=== PATIENT | female | born 1985 | race American Indian/Alaskan Native ===

== ENCOUNTER 2017-12-18 20:15 | Inpatient (IN) | payer OTHER ==
[2017-12-18 20:25] VITALS: BMI 26.6
--- NOTE | 2017-12-18 21:20 | ED PDOC ---
Arrival/HPI - General Chief Complaint: Chest Pain Time Seen by Provider: 12/18/17 21:05 Historian: Patient - History of Present Illness Narrative History of Present Illness (Text): 12/18/17 21:18 32 year old female, whose past medical history includes, hyperthyroidism and history blood clots in the lungs (not on any blood thinners), presents to the emergency department complaining of shortness of breathe and chest pain that began 3-4AM (17 hours ago). The worsening pain radiates to the left arm and states it would not go away. Patient states she knows she has anxiety, but states this does not feel like her anxiety because she had blood clots in the past. Patient denies any fever, chills, abdominal pain, nausea, vomiting, diarrhea, urinary symptoms, back pain, neck pain, headache, dizziness, or any other complaints. Time/Duration: Other (17 hours ago) Symptom Onset: Gradual Symptom Course: Worsening Activities at Onset: Light Context: Home Past Medical History - Provider Review Nursing Documentation Reviewed: Yes - Infectious Disease Hx of Infectious Diseases: None - Pulmonary Hx Pulmonary Embolism: Yes - Hematological/Oncological Hx Cancer: Yes (ovarian) - Psychiatric Hx Substance Use: No - Surgical History Other/Comment: ovarian biopsy - Anesthesia Hx Anesthesia: Yes Hx Anesthesia Reactions: No Hx Malignant Hyperthermia: No Family/Social History - Physician Review Nursing Documentation Reviewed: Yes Family/Social History: No Known Family HX Smoking Status: Never Smoked Hx Alcohol Use: No Hx Substance Use: No Allergies/Home Meds Allergies/Adverse Reactions: Allergies No Known Allergies Allergy (Verified 12/18/17 20:25) Home Medications: Home Meds Medication Instructions Recorded Confirmed ALPRAZolam [Xanax] 0.25 mg PO DAILY PRN 12/19/17 12/19/17 Review of Systems - Physician Review All systems were reviewed & negative as marked: Yes - Review of Systems Constitutional: absent: Fevers, Other (Chills) Respiratory: SOB Cardiovascular: Chest Pain Gastrointestinal: absent: Diarrhea, Nausea, Vomiting Genitourinary Female: absent: Dysuria, Frequency, Hematuria Musculoskeletal: absent: Back Pain, Neck Pain Neurological: absent: Headache, Dizziness Physical Exam Vital Signs Reviewed: Yes Vital Signs Temp Pulse Pulse Resp BP Pulse Ox 12/19/17 06:00 99.2 F 102 H 18 142/60 96 12/19/17 05:37 98 H 04/17/18 04:56 103 H 103 H 18 12/19/17 03:43 133 H 132/72 12/19/17 03:04 115 H 18 131/71 98 12/19/17 00:31 118 H 18 141/78 100 12/18/17 20:31 98.4 F 125 H 26 H 138/83 100 Temperature: Afebrile Blood Pressure: Normal Pulse: Tachycardic Respiratory Rate: Normal Appearance: Positive for: Well-Appearing, Non-Toxic, Comfortable Pain Distress: None Mental Status: Positive for: Alert and Oriented X 3 - Systems Exam Head: Present: Atraumatic, Normocephalic Pupils: Present: PERRL Extroacular Muscles: Present: EOMI Conjunctiva: Present: Normal Mouth: Present: Moist Mucous Membranes Neck: Present: Normal Range of Motion Respiratory/Chest: Present: Clear to Auscultation, Good Air Exchange. No: Respiratory Distress, Accessory Muscle Use Cardiovascular: Present: Regular Rate and Rhythm, Normal S1, S2. No: Murmurs Abdomen: No: Tenderness, Distention, Peritoneal Signs Back: Present: Normal Inspection Upper Extremity: Present: Normal Inspection. No: Cyanosis, Edema Lower Extremity: Present: Normal Inspection. No: Edema Neurological: Present: GCS=15, CN II-XII Intact, Speech Normal Skin: Present: Warm, Dry, Normal Color. No: Rashes Psychiatric: Present: Alert, Oriented x 3, Normal Insight, Normal Concentration Medical Decision Making ED Course and Treatment: 12/18/17 21:28 Impression: 32 year old female presents complaining of worsening chest pain and shortness of breath that began 17 hours ago. Pain radiates down left arm. Pt past medical history includes history of blood clots in the lungs. Plan: -- Labs -- EKG -- Chest X-Ray -- Urinalysis, Urine test -- Reassess and disposition Progress Notes: 12/18/17 23:30 D-Dimer positive 381. Ordered CT chest ordered. 12/19/17 00:52 EKG: Ordered, reviewed, and independently interpreted the EKG. Rate : 135 BPM Rhythm : Sinus Tachycardia Interpretation : No ST/T changes LVH. Comparison : No previous EKG for comparison. EXAM: CT Angiography Chest With Intravenous Contras Dictated and Authenticated by: Ivelisse Rivera MD 12/19/2017 12:56 AM IMPRESSION: 1. Nonobstructing renal calculi. 2. Incidental/non-acute findings are described above. IMPRESSION: 1. Within the limitation of the study no definite central pulmonary embolus is identified and enlargement of pulmonary arterial trunk. Correlation with clinical data is recommended with pulmonary arterial hypertension is clinically suspected. 2. There is diffuse enlargement of thyroid gland. Correlation with clinical data and thyroid function tests may be helpful. Correlation with internal medicine evaluation and further workup or followup as recommended by patient's clinical data 12/19/17 01:03 CXR Impression: As read by me, cardiomegaly. 12/19/17 01:[address] Patel who is aware and agrees with the plan. Accepts patient into his services and requests consult with medical office professional instructor Dr. German Cork Insulator Dr. Barboza. - Lab Interpretations Lab Results: 12/18/17 21:21 12/18/17 21:21 Lab Results 12/18/17 21:27: Thyroxine (T4) > 24.9 H, TSH 3rd Generation < 0.02 L 12/18/17 21:21: Sodium 142, Potassium 3.5 L, Chloride 106, Carbon Dioxide 25, Anion Gap 15, BUN 8, Creatinine 0.3 L, Est GFR ( Amer) > 60, Est GFR (Non -Af Amer) > 60, Random Glucose 102, Calcium 9.5, Total Bilirubin 0.8, AST 51 H, ALT 49, Alkaline Phosphatase 151 H, Lactate Dehydrogenase 453, Total Creatine Kinase 28 L, Troponin I < 0.01, Total Protein 6.9, Albumin 3.5, Globulin 3.3, Albumin/Globulin Ratio 1.1 12/18/17 21:21: PT 13.9 H, INR 1.21 H, D-Dimer, Quantitative 381 H 12/18/17 21:21: WBC 6.3, RBC 3.86, Hgb 10.2 L, Hct 30.6 L, MCV 79.3 L, MCH 26.4 , MCHC 33.3, RDW 14.5, Plt Count 201, MPV 11.0, Gran % 36.5 L, Lymph % (Auto) 51.4 H, [place] % (Auto) 9.8 H, Eos % (Auto) 2.1, Baso % (Auto) 0.2, Gran # 2.30, Lymph # (Auto) 3.2, [place] # (Auto) 0.6, Eos # (Auto) 0.1, Baso # (Auto) 0.01 I have reviewed the lab results: Yes - RAD Interpretation Radiology Orders: 12/18/17 21:10 CHEST PORTABLE [RAD] Stat 12/18/17 23:29 ANGIO CHEST PE PROTOCOL [CT] Stat - EKG Interpretation Interpreted by ED Physician: Yes Type: 12 lead EKG - Medication Orders Current Medication Orders: Discontinued Medications Acetaminophen (Tylenol 325mg Tab) 650 mg PO ONCE ONE Stop: 12/19/17 22:11 Last Admin: 12/19/17 22:18 Dose: 650 mg MAR Pain/Vitals Document 12/19/17 22:18 SOLEDAD (Rec: 12/19/17 22:18 SOLEDAD [id number]) Presence of Pain Presence of Pain Yes Pain Scale Used Pain Scale Used Numeric Location Pain Location Body English Composition Teacher Description Sharp Intensity 8 Scale Used Numeric Pain Behavior Irritability Re-Assess: MAR Pain/Vitals Document 12/19/17 23:18 SOLEDAD (Rec: 12/20/17 01:08 SOLEDAD [id number]) Pain Reassessment Is This A Pain ReAssessment? Yes Sleep Is patient sleeping during reassessment? Yes Aspirin (Aspirin Chewable) 324 mg PO STAT STA Stop: 12/19/17 03:25 Last Admin: 12/19/17 03:43 Dose: 324 mg Magnesium Sulfate 2 gm/ Sodium (Chloride) 104 mls @ 102 mls/hr IVPB Q3H LIBAN Stop: 12/20/17 01:32 Last Admin: 12/19/17 23:50 Dose: 102 mls/hr eMAR Start Stop Document 12/19/17 23:50 BK (Rec: 12/19/17 23:51 SOLEDAD [id number]) Intravenous Solution Start Date 12/19/17 Start Time 23:51 End Date 12/20/17 End time 00:51 Total Infusion Time 60 Methimazole (Tapazole) 5 mg PO Q8H LIBAN Last Admin: 12/19/17 06:47 Dose: 5 mg Methimazole (Tapazole) 20 mg PO BID LIBAN Last Admin: 12/20/17 09:26 Dose: 20 mg Metoprolol Tartrate (Lopressor) 25 mg PO STAT STA Stop: 12/19/17 03:25 Last Admin: 12/19/17 03:43 Dose: 25 mg MAR Pulse and Blood Pressure Document 12/19/17 03:43 JOL (Rec: 12/19/17 03:43 JOL [id number]) Pulse Pulse Rate (60-90) 133 Blood Pressure Blood Pressure (100/60-150/90) 132/72 Morphine Sulfate (Morphine) 4 mg IVP STAT STA Stop: 12/19/17 00:45 Last Admin: 12/19/17 00:54 Dose: 4 mg MAR Pain Assessment Document 12/19/17 00:54 SS (Rec: 12/19/17 00:54 [facility] [id number] Pain Reassessment Is this a pain reassessment? No Sleep Is patient sleeping during reassessment? No Presence of Pain Presence of Pain Yes Pain Scale Used Pain Scale Used Numeric Location Left, Right or Bilateral Left Pain Location Body Site Shoulder Description Description Constant Intensity of Pain at present 9 Pain Behavior Restlessness IVP Administration Document 12/19/17 00:54 SS (Rec: 12/19/17 00:54 [id number] Charges for Administration # of IVP Administrations 1 Ondansetron HCl (Zofran Inj) 4 mg IVP STAT STA Stop: 12/19/17 00:45 Last Admin: 12/19/17 00:54 Dose: 4 mg IVP Administration Document 12/19/17 00:54 SS (Rec: 12/19/17 00:54 [facility] [id number] Charges for Administration # of IVP Administrations 1 Oxycodone/Acetaminophen (Percocet 5/325 Mg Tab) 1 tab PO STAT STA Stop: 12/19/17 03:25 Last Admin: 12/19/17 03:43 Dose: 1 tab MAR Pain Assessment Document 12/19/17 03:43 JOL (Rec: 12/19/17 03:43 JOL [id number]) Pain Reassessment Is this a pain reassessment? No Sleep Is patient sleeping during reassessment? No Presence of Pain Presence of Pain Yes Pain Scale Used Pain Scale Used Numeric Location Pain Location Body Site Chest Description Intensity of Pain at present 8 Pantoprazole Sodium (Protonix Ec Tab) 40 mg PO 0600 LIBAN Last Admin: 12/20/17 05:23 Dose: 40 mg Potassium Chloride (K-Dur 20 Meq Er Tab) 40 meq PO STAT STA Stop: 12/19/17 14:34 Last Admin: 12/19/17 18:47 Dose: 40 meq Propranolol HCl (Inderal) 10 mg PO TID LIBAN Last Admin: 12/20/17 13:53 Dose: 10 mg MAR Pulse and Blood Pressure Document 12/20/17 13:53 KIERSTEN (Rec: 12/20/17 13:53 KIERSTEN [id number]) Pulse Pulse Rate (60-90) 92 Blood Pressure Blood Pressure (100/60-150/90) 124/70 - Scribe Statement The provider has reviewed the documentation as recorded by the Roberth Antony Provider Scribe Attestation: All medical record entries made by the Bhavnaibshon were at my direction and personally dictated by me. I have reviewed the chart and agree that the record accurately reflects my personal performance of the history, physical exam, medical decision making, and the department course for this patient. I have also personally directed, reviewed, and agree with the discharge instructions and disposition. Disposition/Present on Arrival - Present on Arrival Any Indicators Present on Arrival: No History of DVT/PE: No History of Uncontrolled Diabetes: No Urinary Catheter: No History of Decub. Ulcer: No History Surgical Site Infection Following: None - Disposition Have Diagnosis and Disposition been Completed?: Yes Diagnosis: Chest pain Disposition: HOSPITALIZED Disposition Time: 00:00 Patient Plan: Admission, Telemetry Condition: GOOD
[2017-12-18 21:49] LABS: ALB/GLOB RATIO 1.1 (1.1-1.8); ALBUMIN 3.5 g/dL (3.0-4.8); ALT/SGPT 49 U/L (7-56); AST/SGOT 51 U/L (14-36); BLOOD UREA NITROGEN 8 mg/dL (7-21); CALCIUM 9.5 mg/dL (8.4-10.5); GFR AFRICAN-AMERICAN > 60; GFR NON-AFRICAN AMERICAN > 60
[2017-12-18 21:50] LABS: BASO # 0.01 K/mm3 (0.0-2.0); BASO % 0.2 % (0.0-3.0); EOS # 0.1 (0.0-0.7); EOS % 2.1 % (1.5-5.0); GRAN # 2.3 (1.4-6.5); GRAN % 36.5 % (50.0-68.0); HEMOGLOBIN 10.2 g/dL (12.0-16.0); LYMPH # 3.2 (1.2-3.4); LYMPH % 51.4 % (22.0-35.0); MEAN CELL VOLUME 79.3 fl (80.0-105.0); MEAN CORPUSCULAR HEMOGLOBIN 26.4 pg (25.0-35.0); MEAN CORPUSCULAR HGB CONC 33.3 g/dl (31.0-37.0); MONO # 0.6 (0.1-0.6); MONO % 9.8 % (1.0-6.0); RBC 3.86 10^6/uL (3.5-6.1); RED CELL DISTRIBUTION WIDTH 14.5 % (11.5-14.5); WHITE BLOOD COUNT 6.3 10^3/ul (4.5-11.0)
[2017-12-18 22:00] LABS: TROPONIN I < 0.01 ng/mL
[2017-12-18 22:04] LABS: INR 1.21 (0.93-1.08); PROTHROMBIN TIME 13.9 SECONDS (9.4-12.5)
[2017-12-19] MEDS ORDERED: Iodixanol 320 MG/ML 100 ML BOTTLE IV ONE (00:02)
[2017-12-19] MEDS ORDERED: Morphine 4 mg/ml ISec IVP STA (00:44)
--- NOTE | 2017-12-19 00:56 | CT ---
EXAM: CT Angiography Chest With Intravenous Contrast CLINICAL HISTORY: 32 years old, female; Abnormal findings; Abnormal diagnostic tests; Elevated d-dimer; Additional info: Positive d-dimer TECHNIQUE: Axial computed tomographic angiography images of the chest with intravenous contrast using pulmonary embolism protocol. All CT scans at this facility use one or more dose reduction techniques, viz.: automated exposure control; ma/kV adjustment per patient size (including targeted exams where dose is matched to indication; i.e. head); or iterative reconstruction technique. 936 images are submitted. MIP reconstructed images were created and reviewed. Coronal and sagittal reformatted images were created and reviewed. CONTRAST: 96 mL of VISI 320 administered intravenously. COMPARISON: No relevant prior studies available. FINDINGS: Artifacts: Limited due to motion and misregistration artifacts. There is respiratory motion artifact.Limited due to pulsation artifact. Pulmonary arteries: There is enlargement of pulmonary arterial trunk. Correlation with clinical data is recommended pulmonary arterial hypertension is clinically suspected. The pulmonary artery enhancement is less than 176 Hounsfield units which decreases the sensitivity of the examination. As shown no central pulmonary embolus is identified. The segmental and subsegmental pulmonary arteries are degraded by motion artifact and heterogeneous enhancement. Aorta: No acute findings. No thoracic aortic aneurysm. Lungs: There is bibasilar lingular atelectasis. No mass. Pleural space: Unremarkable. No significant effusion. No pneumothorax. Heart: Cardiomegaly with minimal pericardial effusion. Thyroid: There is diffuse enlargement of thyroid gland. Correlation with clinical data and thyroid function tests may be helpful. Bones/joints: No acute fracture. No dislocation. Soft tissues: Left breast nipple body piercing ring. Lymph nodes: Unremarkable. No enlarged lymph nodes. Adrenals: The visualized adrenal glands appear unremarkable. IMPRESSION: 1. Within the limitation of the study no definite central pulmonary embolus is identified and enlargement of pulmonary arterial trunk. Correlation with clinical data is recommended with pulmonary arterial hypertension is clinically suspected. 2. There is diffuse enlargement of thyroid gland. Correlation with clinical data and thyroid function tests may be helpful. Correlation with internal medicine evaluation and further workup or followup as recommended by patient's clinical data.
[2017-12-19 02:35] LABS: T4 > 24.9 ug/dL (5.5-11.0)
[2017-12-19] MEDS ORDERED: Oxycodone/Acetaminophen 5/325 mg Tab PO STA (03:24)
[2017-12-19] MEDS ORDERED: methIMAzole 5 MG TAB PO SCH (06:45)
[2017-12-19 07:43] LABS: IRON 52 ug/dL (45-180)
[2017-12-19 07:52] LABS: % IRON SATURATION 21 % (20-55); TOTAL IRON BINDING CAPACITY 242 ug/dL (265-497)
[2017-12-19 07:57] LABS: TROPONIN I 0.02 ng/mL
--- NOTE | 2017-12-19 07:59 | RAD ---
HISTORY: CP COMPARISON: Correlation made with concurrent CTA chest FINDINGS: LUNGS: Mild bibasilar atelectasis. PLEURA: No significant pleural effusion identified, no pneumothorax apparent. CARDIOVASCULAR: Cardiomegaly. OSSEOUS STRUCTURES: No significant abnormalities. VISUALIZED UPPER ABDOMEN: Normal. OTHER FINDINGS: None. IMPRESSION: Mild bibasilar atelectasis. Cardiomegaly.
[2017-12-19 08:03] LABS: FREE T4 > 6.99 ng/dL (0.78-2.19)
[2017-12-19 08:08] LABS: T4 > 24.9 ug/dL (5.5-11.0)
[2017-12-19 08:35] LABS: URINE BILIRUBIN NEGATIVE (NEGATIVE); URINE BLOOD TRACE-INTACT (NEGATIVE); URINE GLUCOSE (UA) NEGATIVE (NEGATIVE); URINE LEUKOCYTE ESTERASE NEGATIVE Leu/uL (NEGATIVE); URINE PROTEIN TRACE mg/dL (<30 mg/dL); URINE UROBILINOGEN 0.2 E.U./dL (<1 E.U./dL)
[2017-12-19 08:36] LABS: URINE APPEARANCE CLEAR (CLEAR); URINE COLOR DARK YELLOW (YELLOW)
[2017-12-19 08:47] LABS: URINE BACTERIA SMALL (NEG); URINE WBC 0 - 2 /hpf (0-6)
[2017-12-19 08:48] LABS: URINE AMORPHOUS SEDIMENT FEW
--- NOTE | 2017-12-19 12:21 | US ---
HISTORY: HYPERTHYROIDISM TECHNIQUE: Grayscale imaging was performed. COMPARISON: None FINDINGS: RIGHT LOBE: Measures 6.9 x 2.9 x 3.3 cm. There is diffuse heterogeneous echotexture with markedly increased vascular flow. Nodules: None LEFT LOBE: Measures 6.4 x 2.9 x 2.8 cm. There is diffuse heterogeneous echotexture with markedly increased vascular flow.. Nodules: None ISTHMUS: Measures 0.9 cm. There is diffuse heterogeneous echotexture with markedly increased vascular flow. Nodules: None OTHER FINDINGS: None . IMPRESSION: Enlarged heterogeneous markedly hypervascular thyroid gland without discrete solid or cystic nodule.
[2017-12-19 12:45] LABS: FERRITIN 50.4 ng/mL
--- NOTE | 2017-12-19 14:25 | CP.PCM.HP ---
History of Present Illness - History of Present Illness History of Present Illness: Medicine H&P: Dr. Ellison Chief Complaint: Chest pain with associated shortness of breath HPI: 32 year old female with past medical history of pulmonary embolisms and hyperthyroidism presented with 17 hour duration fo chest pain and shortness of breath. Patient states that the shortness of breath started at rest as did the chest pain. Patient denies ever having an AMI nor having a stress test, cath, or echo. Patient does state that she has palpitations but attributes them to her hyperthyroidism. Review of systems: 12 point ROS obtained and negative except as per HPI Surgical history: Patient denies Medical history: Hyperthyroidism, Pulmonary embolisms Allergies: NKDA Social history: Patient denies tobacco, illicits; social alcohol Home meds: Methimazole 5, Xanax .25 Family history: Non-contributory; denies cardiac disease Present on Admission - Present on Admission Any Indicators Present on Admission: No Past Patient History - Infectious Disease Hx of Infectious Diseases: None - Past Social History Smoking Status: Never Smoked - CARDIAC Hx Cardiac Disorders: No - PULMONARY Hx Respiratory Disorders: No - NEUROLOGICAL Hx Neurological Disorder: Yes Hx Migraine: Yes - HEENT Hx HEENT Problems: No - RENAL Hx Chronic Kidney Disease: No Other/Comment: Pyelonephritis (L) - ENDOCRINE/METABOLIC Hx Endocrine Disorders: Yes Hx Hyperthyroidism: Yes - HEMATOLOGICAL/ONCOLOGICAL Hx Blood Disorders: Yes Hx Anemia: Yes Hx Cancer: Yes (ovarian with radiation) - INTEGUMENTARY Hx Dermatological Problems: No - MUSCULOSKELETAL/RHEUMATOLOGICAL Hx Musculoskeletal Disorders: No Hx Falls: Yes - GASTROINTESTINAL Hx Gastrointestinal Disorders: No - GENITOURINARY/GYNECOLOGICAL Hx Genitourinary Disorders: No Hx Urinary Tract Infection: Yes - PSYCHIATRIC Hx Psychophysiologic Disorder: Yes Hx Anxiety: Yes Hx Substance Use: No - SURGICAL HISTORY Hx Surgeries: Yes Other/Comment: ovarian biopsy, - ANESTHESIA Hx Anesthesia: Yes Hx Anesthesia Reactions: No Hx Malignant Hyperthermia: No Meds Allergies/Adverse Reactions: Allergies Allergy/AdvReac Type Severity Reaction Status Date / Time No Known Allergies Allergy Verified 12/18/17 20:25 Physical Exam - Constitutional Appears: Well - Head Exam Head Exam: ATRAUMATIC, NORMAL INSPECTION, NORMOCEPHALIC - Eye Exam Eye Exam: EOMI, PERRL Pupil Exam: NORMAL ACCOMODATION, PERRL Additional comments: Exophthalmos - ENT Exam ENT Exam: Mucous Membranes Moist, Normal Exam Additional comments: Enlarged thyroid gland - Neck Exam Neck exam: Positive for: Normal Inspection - Respiratory Exam Respiratory Exam: Clear to Auscultation Bilateral, NORMAL BREATHING PATTERN - Cardiovascular Exam Cardiovascular Exam: REGULAR RHYTHM - GI/Abdominal Exam GI & Abdominal Exam: Normal Bowel Sounds, Soft. absent: Tenderness - Extremities Exam Extremities exam: Positive for: normal inspection - Back Exam Back exam: NORMAL INSPECTION - Neurological Exam Neurological exam: Alert, CN II-XII Intact, Normal Gait, Oriented x3, Reflexes Normal - Psychiatric Exam Psychiatric exam: Normal Affect, Normal Mood - Skin Skin Exam: Dry, Intact, Normal Color, Warm Results - Vital Signs Recent Vital Signs: Last Vital Signs Temp 98.7 F 12/19/17 12:00 Pulse 101 H 12/19/17 12:00 Resp 20 12/19/17 12:00 BP 123/71 12/19/17 12:00 Pulse Ox 96 12/19/17 06:00 - Labs Result Diagrams: 12/18/17 21:21 12/18/17 21:21 Labs: Laboratory Results - last 24 hr 12/19/17 12/19/17 12/19/17 07:00 07:15 07:15 ESR Iron TIBC % Saturation Ferritin 50.4 Total Creatine Kinase 25 L Troponin I 0.02 D Free T4 > 6.99 H Thyroxine (T4) > 24.9 H TSH 3rd Generation < 0.02 L Beta HCG, Quant Urine Color Dark yellow Urine Appearance Clear Urine pH 5.0 Ur Specific [place] 1.015 Urine Protein Trace H Urine Glucose (UA) Negative Urine Ketones Negative Urine Blood Trace-intact H Urine Nitrate Negative Urine Bilirubin Negative Urine Urobilinogen 0.2 Ur Leukocyte Esterase Negative Urine RBC 1 - 3 Urine WBC 0 - 2 Ur Epithelial Cells 4 - 5 Amorphous Sediment Few Urine Bacteria Small 12/19/17 12/19/17 12/19/17 07:15 08:15 10:38 ESR 36 H Iron 52 TIBC 242 L % Saturation 21 Ferritin Total Creatine Kinase Troponin I Free T4 Thyroxine (T4) TSH 3rd Generation Beta HCG, Quant < 2.39 Urine Color Urine Appearance Urine pH Ur Specific [place] Urine Protein Urine Glucose (UA) Urine Ketones Urine Blood Urine Nitrate Urine Bilirubin Urine Urobilinogen Ur Leukocyte Esterase Urine RBC Urine WBC Ur Epithelial Cells Amorphous Sediment Urine Bacteria Assessment & Plan - Assessment and Plan (Free Text) Assessment: 32 year old female with past medical history of hyperthyroidism and pulmonary embolisms presents with shortness of breath and chest pain. D-dimer elevated but CTA negative for PE; Tropes neg X 2, but slight uptrending; EKG negative, shows Sinus tachycardia with mild LAE. Patient's symptoms in line with elevated T4 and very low TSH. Patient's H/H slightly decreased with TIBC low and iron normal. Potassium low on admission, magnesium ordered. Plan: Chest Pain r/o ACS - Troponin X 3, EKG X 3, ECHO ordered - Cardio consult: Dr. Fernandez Sinus Tachycardia, likely 2/2 Acute Hyperthyroidism - Endo consult: Dr. Garner - Propranolol ordered Acute Hyperthyroidism - Thyroglobulin AB, Thyroglobulin Panel, TSH, T3, T4, TSI ordered - Methimazole, Propranolol - Endo Consult: Dr. Garner Asymptomatic Anemia - H/H stable - Monitor for now Hypokalemia - Replenished, monitor K+ and Mg GI/DVT Prophylaxis - Protonix/SCD
--- NOTE | 2017-12-19 14:25 | US ---
HISTORY: Leg pain and swelling. Evaluate for DVT PHYSICIAN(S): Sheldon Santana MD. TECHNIQUE: Duplex sonography and color-flow Doppler with graded compression were used to evaluate the deep venous systems of both lower extremities. FINDINGS: The visualized deep venous systems of both lower extremities are sonographically normal and compressible. Normal wave forms and augmentation are seen. There is no sonographic evidence for deep venous thrombosis in the visualized segments of both lower extremities. IMPRESSION: No sonographic evidence for deep venous thrombosis in the visualized segments of both lower extremities.
[2017-12-19] MEDS ORDERED: Potassium Chloride 20 mEq ER Tab PO STA (14:33)
[2017-12-19] MEDS: methIMAzole 5 MG TAB PO SCH (17:29)
--- NOTE | 2017-12-19 21:15 | CARD ---
APPROVED REPORT EXAM: Two-dimensional and M-mode echocardiogram with Doppler and color Doppler. INDICATION Pulmonary Hypertention 2D DIMENSIONS Left Atrium (2D)4.2 (1.6-4.0cm)IVSd1.0 (0.7-1.1cm) LVDd4.8 (3.9-5.9cm)PWd1.3 (0.7-1.1cm) LVDs3.5 (2.5-4.0cm)FS (%) 27.6 % LVEF (%)53.3 (>50%) M-Mode DIMENSIONS Aortic Root2.90 (2.2-3.7cm)Aortic Cusp Exc.1.90 (1.5-2.0cm) Aortic Valve AoV Peak Dypsvlcd429.0cm/Enedelia Peak GR.17mmHg Mitral Valve E/A ratio0.0 TDI E/Lateral E'0.0E/Medial E'0.0 Tricuspid Valve RAP [id number] Peak Gr.[id number] LEFT VENTRICLE The left ventricle is normal size. There is normal left ventricular wall thickness. The left ventricular function is normal. The left ventricular ejection fraction is within the normal range. There is normal LV segmental wall motion. The left ventricular diastolic function is normal. RIGHT VENTRICLE The right ventricle is borderline dilated. There is normal right ventricular wall thickness. The right ventricular systolic function is normal. ATRIA The left atrium is mildly dilated. The right atrium size is normal. AORTIC VALVE The aortic valve is normal in structure. There is trace aortic regurgitation. There is no aortic valvular stenosis. MITRAL VALVE The mitral valve is normal in structure. Mitral regurgitation is trace. There is no mitral valve stenosis. TRICUSPID VALVE There is mild tricuspid regurgitation. There is mild pulmonary hypertension. GREAT VESSELS The aortic root is normal in size. The IVC is dilated. <Conclusion> The left ventricle is normal size. There is normal left ventricular wall thickness. The left ventricular function is normal. The left ventricular ejection fraction is within the normal range. There is normal LV segmental wall motion. The left ventricular diastolic function is normal. There is mild tricuspid regurgitation. There is mild pulmonary hypertension.
--- NOTE | 2017-12-19 21:21 | HP ---
DATE OF EXAM: HISTORY OF PRESENT ILLNESS: The patient is a 32-year-old female, presented to the emergency room complaining of chest pain and shortness of breath which has been persistent throughout the day. The patient came in as an ambulatory walking to the emergency room. The patient was seen and evaluated in the emergency room by the ER physician. The patient stated that complaining of chest pain with history of blood clots in the lungs. The patient stated that she has been followed by a physician in [place] for her medical issues including her hyperthyroidism. The patient reported complains of shortness of breath and chest pain which has been going on for few days, but this has been worsening with . CODE STATUS: Full code. LIVING WILL/ADVANCE DIRECTIVE: None. ALLERGIES: None. HEIGHT: 5 feet, 9 inches. HOME MEDICATIONS: Tapazole 5 mg twice a day and Xanax 0.25 daily p.r.n. PAST MEDICAL AND SURGICAL HISTORY: History of hyperthyroidism, history of anxiety disorder, history of questionable pulmonary embolism and blood clot in the lungs, not treated with blood thinners; history of ovarian biopsy, history of questionable ovarian cancer with radiation as per the history, history of migraine. History of questionable pyelonephritis, history of . SOCIAL HISTORY: The patient denies substance abuse, denies alcohol, denies smoking. FAMILY HISTORY: The patient's family history is not available at this time. PHYSICAL EXAMINATION: VITAL SIGNS: T-max 98.4 to 99.2. Heart rate initially 125, 118, 133, 98, 102, 103. Blood pressure 142/60, 132/72, 141/78, 138/83. Respirations 18. O2 sat 96% to 98%. HEENT: Head examination: Normocephalic and atraumatic. HEENT examination shows borderline mild exophthalmos. Positive thyromegaly noted. Pinkish pale conjunctivae. Anicteric sclerae. CHEST: Shows positive palpable chest wall tenderness. LUNGS: Shows occasional rhonchi. ABDOMEN: Soft. Positive bowel sounds. GENITALIA: Female. RECTAL: Deferred. EXTREMITIES: Show questionable mild swelling of the bilateral lower extremity. MUSCULOSKELETAL: Shows a body mass index of 28. PSYCHIATRIC: Positive for a history of anxiety. DIAGNOSTICS: WBC 6.3, hemoglobin/hematocrit 10.2/30.6, platelets 201. PT 13.9. D-dimer 381. Significant abnormal labs: Potassium 3.5, iron is 52. Troponin two sets negative. T4 , TSH is less than 0.02. Urinalysis, trace protein, trace blood, small bacteria. The patient had a CT of the chest done, which was negative for PE. EKG was reviewed, which shows sinus rhythm, sinus tachycardia. The patient was seen in the emergency room by the ER physician. The patient was advised to be admitted to the telemetry floor. IMPRESSION: 1. Chest pain. 2. Shortness of breath, etiology undetermined. 3. Resting tachycardia. 4. Microcytic anemia with lymphocytosis. 5. Questionable mild lymphocytosis. 6. Elevated D-dimer. 7. Hypokalemia. 8. Severe symptomatic hyperthyroidism versus severe hyperthyroidism with elevated free T4 and total T4. 9. Trace proteinuria. 10. Microscopic hematuria. 11. Bacteriuria. 12. Questionable pulmonary hypertension. 13. Bibasilar and lingular atelectasis. 14. Thyromegaly. 15. Sinus tachycardia. 16. History of hyperthyroidism. 17. History of anxiety. 18. Questionable bilateral lower extremity venostasis. 19. Elevated right ventricular systolic pressure of 51 mmHg. PLAN: At this time, the patient has been ordered iron studies. Repeat troponin ordered. C-reactive protein, thyroid antibody panel ordered. Cardiology consultation and Endocrinology consultation ordered. The patient is started on Inderal 10 mg three times a day. The patient has been ordered Tapazole 5 mg every 8 hours. The patient has been ordered venous Doppler, thyroid ultrasound. Repeat EKG ordered, which is still not done. The patient has been ordered out of bed. At present, the patient is awaiting Cardiology and Endocrinology evaluation. If the patient is cleared by above subspecialty and if the patient's echocardiogram, venous Doppler, thyroid ultrasound are negative, the patient will be considered for discharge soon. All of the above discussed and explained to the patient at length and the medical record specialist. Dictated and electronically signed, not read. Yuri Ellison MD
--- NOTE | 2017-12-19 21:32 | CARD ---
APPROVED REPORT EKG Measurement Heart [id number] [place] [id number] <Conclusion> Sinus tachycardia Possible Left atrial enlargement Borderline ECG
--- NOTE | 2017-12-19 21:39 | CARD ---
APPROVED REPORT EKG Measurement Heart [id number] [place] [id number] <Conclusion> Sinus tachycardia Biatrial enlargement Left ventricular hypertrophy with repolarization abnormality Abnormal ECG
[2017-12-19] MEDS: Magnesium Sulfate 2 GM in Sodium Chloride 0.9% 100 ML IVPB SCH ×2 (22:44→23:50)
--- NOTE | 2017-12-20 00:25 | CON ---
DATE: ENDOCRINOLOGY CONSULT LOCATION: In room 264. HISTORY OF PRESENT ILLNESS: This is a 32-year-old female with known history of hyperthyroidism, presenting here with sudden onset of precordial chest pain with supervening shortness of breath, initially on exertion and then at rest, and admitted here for further cardiac workup for acute coronary syndrome and possible pulmonary embolism. She underwent a CT angiography of the chest, which did not fully elucidate the presence of acute pulmonary emboli. PAST MEDICAL HISTORY: As mentioned above, history of hyperthyroidism, currently on a low dose of medical therapy with Tapazole given as 5 mg b.i.d.; history of hypertension; dyslipidemia; history of bronchial asthma. FAMILY HISTORY: Positive for hypertension and heart disease. No known thyroid endocrinopathy. SOCIAL HISTORY: The patient has supportive family. No known substance use. REVIEW OF SYSTEMS: As mentioned above. Admits to generalized body weakness with easy fatigability and tiredness and suboptimal energy level. Also admits to dizziness and lightheadedness, worse in the last 2 to 3 days prior to admission. Also admits to sudden onset of left-sided precordial chest pain with supervening palpitations especially on exertion and eventually at rest. Her oral intake has been variable with nausea, dyspepsia, and vague upper abdominal pains with hyperdefecation as noted. PHYSICAL EXAMINATION: GENERAL: Average built female, in no apparent distress. VITAL SIGNS: Blood pressure of 140/80, pulse of 100 beats per minute and regular, temperature 98, respirations 20. Height is 5 feet 9 inches, weight is 189 pounds. HEENT: Head: Normocephalic. Eyes: Anicteric with conjunctivae. Funduscopy not possible at this time. Ears, nose, and throat: Otherwise normal. NECK: Supple. Thyroid gland shows moderately enlarged diffuse thyromegaly, which is firm and nontender with positive thyroid bruits, but no cervical adenopathy noted. HEART: Hyperdynamic precordium. S1, S2 rapid and regular. LUNGS: Clear to auscultation. ABDOMEN: Flat, soft with positive bowel sounds. EXTREMITIES: No peripheral edema. Pulses are +2 bilaterally. LABORATORY DATA: Her thyroid ultrasound showed a right lobe measuring 6.9 x 2.9 x 3.3 cm and the left lobe measuring 6.4 x 2.9 x 2.8 cm with markedly increased vascular flow bilaterally. No overt thyroid nodules noted. Her chemistries showed a BUN of 8. Sodium 142, potassium 3.5, chloride 106, CO2 of 25. Glucose is 102. Creatinine 0.3. Her thyroid study showed a T4 of greater than 24.9 with a TSH of less than 0.02 and free T4 of greater than 6.99. Her alkaline phosphatase is 151. ASSESSMENT: This is a 32-year-old female with overt thyrotoxicosis presenting here with marked hyperthyroidism both historically, clinically, and biochemically, most likely related to underlying Graves disease with a concomitant markedly enlarged diffuse toxic goiter with no overt compressive symptoms as noted. PLAN: Plan of management as discussed with the patient and staff, we will maximize her medical therapy with thioureas using Tapazole at 20 mg p.o. b.i.d. to start today as ordered. We will titrate incrementally as indicated to optimize metabolic control. We will obtain thyroid stimulating immunoglobulin and a thyroid peroxidase antibody, which will confirm and/or indicate the presence of underlying thyroid autoimmunity. We will obtain serial chemistries and supplement accordingly as needed. The patient will eventually need outpatient and the need for bacterial management especially using thyroid resection with a near total thyroidectomy as noted. With a markedly enlarged goiter, she will really not qualify for radioactive iodine therapy because of the very large dosing of the radioiodine to be given for a very large goiter and this has a potential risk in the future of secondary malignancies. We will obtain serial chemistries and supplement accordingly as needed. We will follow. Giovanna Garner MD
[2017-12-20] MEDS ORDERED: Pantoprazole 40 mg EC Tab PO SCH (06:00)
[2017-12-20 06:03] VITALS: TEMP 98.2
[2017-12-20 06:17] LABS: EOS # 0.1 (0.0-0.7); EOS % 2.4 % (1.5-5.0); GRAN # 1.15 (1.4-6.5); GRAN % 27.3 % (50.0-68.0); HEMOGLOBIN 9.6 g/dL (12.0-16.0); LYMPH # 2.4 (1.2-3.4); LYMPH % 57.9 % (22.0-35.0); MEAN CELL VOLUME 79.7 fl (80.0-105.0); MEAN CORPUSCULAR HEMOGLOBIN 25.7 pg (25.0-35.0); MEAN CORPUSCULAR HGB CONC 32.2 g/dl (31.0-37.0); MEAN PLATELET VOLUME 10.3 fl (7.0-11.0); MONO # 0.5 (0.1-0.6); MONO % 12.4 % (1.0-6.0); RBC 3.74 10^6/uL (3.5-6.1); RED CELL DISTRIBUTION WIDTH 14.6 % (11.5-14.5)
[2017-12-20 06:28] LABS: ALBUMIN 3.4 g/dL (3.0-4.8); ALT/SGPT 42 U/L (7-56); AST/SGOT 46 U/L (14-36); BILIRUBIN,DIRECT 0.5 mg/dL (0.0-0.4); BLOOD UREA NITROGEN 7 mg/dL (7-21); CALCIUM 10.1 mg/dL (8.4-10.5); GFR AFRICAN-AMERICAN > 60; GFR NON-AFRICAN AMERICAN > 60; HDL CHOLESTEROL 41 mg/dL (29-60)
[2017-12-20 06:38] LABS: LDL CHOLESTEROL 81 mg/dL (0-129)
[2017-12-20 06:43] LABS: FREE T4 6.83 ng/dL (0.78-2.19)
[2017-12-20 07:03] LABS: WHITE BLOOD COUNT 4.2 10^3/ul (4.5-11.0)
[2017-12-20 07:32] LABS: T4 > 24.9 ug/dL (5.5-11.0)
--- NOTE | 2017-12-20 08:28 | CON ---
DATE: 12/19/2017 CARDIOLOGY CONSULTATION REASON FOR CONSULTATION: Palpitation, sinus tachycardia as well as chest discomfort. HISTORY OF PRESENT ILLNESS: The patient is a 32-year-old female who was diagnosed with hyperthyroidism in 2016 and was placed on medical therapy since then. The patient has a history of pulmonary embolism. She was diagnosed in September of last year with PE at [facility], but does not recall any workup for her hypercoagulable state. The patient was placed on oral anticoagulant agent for a few months only according to her and denies having any history of DVT in the past. Patient presented because of chest discomfort radiating to left shoulder and left arm. Patient does report palpitation, but is unaware of any diagnosis of atrial fibrillation in the past. She denies any syncope. SOCIAL HISTORY: Patient is nonsmoker, nondrinker. She works as a marketing teacher in an apartment building. She has two daughters. MEDICATIONS: Inderal 10 mg t.i.d., Protonix 40 mg once a day and Tapazole 20 mg twice a day. REVIEW OF SYSTEMS: The patient is experiencing diarrhea, loss of weight and anxiety. PHYSICAL EXAMINATION: GENERAL: The patient is a young middle-aged female, who does not appear to be in any distress. VITAL SIGNS: Blood pressure /52, heart rate 97, temperature of 99.2, respirations 20. HEENT: Exophthalmos as well as a staring look. NECK: No JVD. Diffuse goiter is noted. CHEST: Clear. HEART: S1 and S2 regular. ABDOMEN: Soft. EXTREMITIES: 2+ nonpitting edema. No calf tenderness. LABORATORY DATA: SMA-7: Sodium 142, potassium 3.5, chloride 106, CO2 of 25, glucose 102, BUN 8, creatinine 0.3. TSH level is less than 0.02. T4 is more than 24.9. Free T4 is more than 6.99. Two sets of troponin are 0.01 and 0.02. D-dimer is 381. Hemoglobin and hematocrit 10.2 and 30.6. White count and platelet count are within normal limits. ESR is 36. Chest CT angio is within the limitation of the study, no definite central pulmonary embolus is identified and enlargement of the pulmonary arterial trunk. Correlation with pulmonary data is recommended. Pulmonary arterial hypertension is clinically suspected. There is diffuse enlargement of the thyroid gland, correlation with clinical data and thyroid function may be helpful. Venous Doppler of the lower extremity, no sonographic evidence of DVT in the visualized segments. Thyroid ultrasound, enlarged heterogeneous markedly hypervascular thyroid without discrete solid or cystic nodule. EKG reveals sinus tachycardia at a rate of 101, possible left atrial enlargement. ASSESSMENT: 1. Chest pain, myocardial infarction is ruled out. 2. Hyperthyroidism with toxic goiter. 3. Anemia. 4. Hypokalemia. 5. Abnormal EKG with evidence of sinus tachycardia as well as possible left atrial enlargement. RECOMMENDATIONS: The patient did only receive potassium replacement of 40 mEq orally, continue Tapazole of 20 mg twice a day and continue Inderal 10 mg t.i.d. Continue telemetry monitoring. I will review the echocardiographic study and I recommend obtaining the chest CT angio performed last year at [facility]. Lionel German MD
[2017-12-20] MEDS: methIMAzole 5 MG TAB PO SCH (09:26)
--- NOTE | 2017-12-20 09:27 | CON ---
DATE: 12/19/2017 PULMONARY CONSULTATION REFERRING PHYSICIAN: Dr. Ellison. REASON FOR CONSULTATION: History of pulmonary embolism, pulmonary hypertension, admitted with shortness of breath. HISTORY OF PRESENT ILLNESS: This is a 32-year-old female with known history of hyperthyroidism, been on Tapazole, in the past diagnosed with pulmonary embolism at [facility], apparently treated for 3 months of total therapy according to patient and anticoagulation was stopped. From the last few days, has been having some shortness of breath, developed chest pain. She has a persistent lower extremity edema for many months. So in the ER, has a CTA done, which was reported as no pulmonary embolism. She is still short of breath, admits to have daytime sleepy and tired, probably snoring. No nausea, no vomiting and no diarrhea. PAST MEDICAL HISTORY: Pulmonary embolism and hyperthyroidism. ALLERGIES: NONE KNOWN. SOCIAL HISTORY: Denied any smoking or alcohol use. FAMILY HISTORY: No significant cardiopulmonary disease or no history of thromboembolic disease reported. MEDICATIONS: She is on Inderal 10 mg three times a day, magnesium 2 g was given IV, Protonix 40 mg daily, Tapazole 20 mg twice a day. REVIEW OF SYSTEMS: No headache, no rhinitis. She thinks she had a heavy breathing at nighttime, daytime sleepy and tired, short of breath with minimal exertion. Chest pain is better. No nausea, no vomiting, no diarrhea. Has a persistent leg swelling. PHYSICAL EXAMINATION: VITAL SIGNS: Temperature is 99, heart rate is 87, respiratory rate is 20, pulse ox is 96% on room air, blood pressure 123/71. HEENT: Moist mucous membrane. Crowded airway. Mallampati score is 4. NECK: Supple. No JVD. LUNGS: Have a fair airflow with rhonchi. HEART: S1 and S2. ABDOMEN: Soft, nontender. No organomegaly. EXTREMITIES: Does have a trace edema. NEUROLOGIC: Awake and alert. Follows simple commands. LABORATORY DATA: Shows hemoglobin 10.2, hematocrit 30.6, WBC 6.3, platelet count is 201. Sed rate is 36. INR 1.21. D-dimer is 381. Sodium 142, potassium 3.5, chloride 106, bicarbonate 25, BUN 8, creatinine 0.3, calcium is 9.5, magnesium is 1.6. Iron is 52, AST 51, ALT 49, alk phos is 151. Troponin less than 0.02. T4 free is greater than 6.9. Thyroxine is greater than 24.9. Beta hCG is not done. Ferritin is 50. She has an echocardiogram done today shows right ventricular systolic pressure is 45. Left ventricular function is normal. CAT scan of the chest is done, which shows onset of pulmonary embolism, enlarged pulmonary arterial trunk, diffuse enlarged thyroid gland. Has a venous Doppler of lower extremity done. No DVT reported. IMPRESSION AND PLAN: Pulmonary hypertension, history of pulmonary embolism, hyperthyroidism, admitted with shortness of breath and chest discomfort, could it to be secondary to tachycardia affecting chronically, causing pulmonary hypertension?, but at the same time has a history of pulmonary embolism, are we seeing thromboembolic phenomenon, which could be missed by CTA. So I will suggest to get a V/Q scan to assure there is no thromboembolic disease. We will send human immunodeficiency virus status, sed rate, rheumatoid factor and ERVIN. We will send TFT and sleep study upon discharge as an outpatient. Try to correct hyperthyroidism and try to make an euthyroidism. Thank you and we will follow with you. Margarito Barboza MD
[2017-12-20 10:46] VITALS: RESP 18; O2SAT 97
--- NOTE | 2017-12-20 12:49 | CP.PCM.DIS ---
Provider - Provider Date of Admission: 12/19/17 01:55 Attending physician: Yuri Ellison MD Primary care physician: NO PRIMARY CARE PROVIDER Consults: Dr. Barboza: Francesco Delacruz Cam: Wang Fernandez: Cardio Time Spent in preparation of Discharge (in minutes): 45 Hospital Course - Lab Results Lab Results: Most Recent Lab Values WBC 4.2 10^3/ul (4.5-11.0) L D 12/20/17 06:00 RBC 3.74 10^6/uL (3.5-6.1) 12/20/17 06:00 Hgb 9.6 g/dL (12.0-16.0) L 12/20/17 06:00 Hct 29.8 % (36.0-48.0) L 12/20/17 06:00 MCV 79.7 fl (80.0-105.0) L 12/20/17 06:00 MCH 25.7 pg (25.0-35.0) 12/20/17 06:00 MCHC 32.2 g/dl (31.0-37.0) 12/20/17 06:00 RDW 14.6 % (11.5-14.5) H 12/20/17 06:00 Plt Count 168 10^3/uL (120.0-450.0) 12/20/17 06:00 MPV 10.3 fl (7.0-11.0) 12/20/17 06:00 Gran % 27.3 % (50.0-68.0) L 12/20/17 06:00 Lymph % (Auto) 57.9 % (22.0-35.0) H 12/20/17 06:00 [place] % (Auto) 12.4 % (1.0-6.0) H 12/20/17 06:00 Eos % (Auto) 2.4 % (1.5-5.0) 12/20/17 06:00 Baso % (Auto) 0.0 % (0.0-3.0) 12/20/17 06:00 Gran # 1.15 (1.4-6.5) L 12/20/17 06:00 Lymph # (Auto) 2.4 (1.2-3.4) 12/20/17 06:00 [place] # (Auto) 0.5 (0.1-0.6) 12/20/17 06:00 Eos # (Auto) 0.1 (0.0-0.7) 12/20/17 06:00 Baso # (Auto) 0.00 K/mm3 (0.0-2.0) 12/20/17 06:00 ESR 42 mm/hr (0.0-20.0) H 12/20/17 06:00 PT 13.9 SECONDS (9.4-12.5) H 12/18/17 21:21 INR 1.21 (0.93-1.08) H 12/18/17 21:21 D-Dimer, Quantitative 381 ng/mL (0-243) H 12/18/17 21:21 Sodium 141 mmol/L (132-148) 12/20/17 06:00 Potassium 4.0 mmol/L (3.6-5.0) 12/20/17 06:00 Chloride 107 mmol/L (98-107) 12/20/17 06:00 Carbon Dioxide 26 mmol/L (21-33) 12/20/17 06:00 Anion Gap 12 (10-20) 12/20/17 06:00 BUN 7 mg/dL (7-21) 12/20/17 06:00 Creatinine 0.3 mg/dl (0.7-1.2) L 12/20/17 06:00 Est GFR ( Amer) > 60 12/20/17 06:00 Est GFR (Non-Af Amer) > 60 12/20/17 06:00 Random Glucose 92 mg/dL (70-110) 12/20/17 06:00 Calcium 10.1 mg/dL (8.4-10.5) 12/20/17 06:00 Magnesium 1.8 mg/dL (1.7-2.2) 12/20/17 06:00 Iron 52 ug/dL (45-180) 12/19/17 07:15 TIBC 242 ug/dL (265-497) L 12/19/17 07:15 % Saturation 21 % (20-55) 12/19/17 07:15 Erythropoietin 53.4 mIU/mL (2.6-18.5) H 12/19/17 07:15 Ferritin 50.4 ng/mL 12/19/17 07:15 Total Bilirubin 1.0 mg/dL (0.2-1.3) 12/20/17 06:00 Direct Bilirubin 0.5 mg/dL (0.0-0.4) H 12/20/17 06:00 AST 46 U/L (14-36) H 12/20/17 06:00 ALT 42 U/L (7-56) 12/20/17 06:00 Alkaline Phosphatase 164 U/L (38-126) H 12/20/17 06:00 Lactate Dehydrogenase 453 U/L (333-699) 12/18/17 21:21 Total Creatine Kinase 25 U/L (35-230) L 12/19/17 07:15 Troponin I 0.02 ng/mL D 12/19/17 07:15 C-Reactive Prot, Quant 8.9 mg/L (<8.0) H 12/19/17 10:00 Total Protein 6.8 g/dL (5.8-8.3) 12/20/17 06:00 Albumin 3.4 g/dL (3.0-4.8) 12/20/17 06:00 Globulin 3.4 gm/dL 12/20/17 06:00 Albumin/Globulin Ratio 1.0 (1.1-1.8) L 12/20/17 06:00 Triglycerides 46 mg/dL (35-160) 12/20/17 06:00 Cholesterol 145 mg/dL (130-200) 12/20/17 06:00 LDL Cholesterol Direct 81 mg/dL (0-129) 12/20/17 06:00 HDL Cholesterol 41 mg/dL (29-60) 12/20/17 06:00 Free T4 6.83 ng/dL (0.78-2.19) H 12/20/17 06:00 Thyroxine (T4) > 24.9 ug/dL (5.5-11.0) H 12/20/17 06:00 TSH 3rd Generation < 0.02 mIU/mL (0.46-4.68) L 12/20/17 06:00 Beta HCG, Quant < 2.39 mIU/mL (0-6.15) 12/19/17 10:38 Urine Color Dark yellow (YELLOW) 12/19/17 07:00 Urine Appearance Clear (CLEAR) 12/19/17 07:00 Urine pH 5.0 (4.7-8.0) 12/19/17 07:00 Ur Specific [place] 1.015 (1.005-1.035) 12/19/17 07:00 Urine Protein Trace mg/dL (<30 mg/dL) H 12/19/17 07:00 Urine Glucose (UA) Negative mg/dL (NEGATIVE) 12/19/17 07:00 Urine Ketones Negative mg/dL (NEGATIVE) 12/19/17 07:00 Urine Blood Trace-intact (NEGATIVE) H 12/19/17 07:00 Urine Nitrate Negative (NEGATIVE) 12/19/17 07:00 Urine Bilirubin Negative (NEGATIVE) 12/19/17 07:00 Urine Urobilinogen 0.2 E.U./dL (<1 E.U./dL) 12/19/17 07:00 Ur Leukocyte Esterase Negative [place]/uL (NEGATIVE) 12/19/17 07:00 Urine RBC 1 - 3 /hpf (0-2) 12/19/17 07:00 Urine WBC 0 - 2 /hpf (0-6) 12/19/17 07:00 Ur Epithelial Cells 4 - 5 /hpf (0-5) 12/19/17 07:00 Amorphous Sediment Few 12/19/17 07:00 Urine Bacteria Small (NEG) 12/19/17 07:00 Urine HCG, Qual Negative (NEGATIVE) 12/19/17 15:37 - Hospital Course Hospital Course: HPI Day of Admission: 32 year old female with past medical history of pulmonary embolisms and hyperthyroidism presented with 17 hour duration fo chest pain and shortness of breath. Patient states that the shortness of breath started at rest as did the chest pain. Patient denies ever having an AMI nor having a stress test, cath, or echo. Patient does state that she has palpitations but attributes them to her hyperthyroidism. Hospital Course: While here, ACS was ruled out with negative tropes X 3 and negative EKG's. Patient's H/H were stable. For her hyperthyroidism, the patient's methimazole and propranolol were restarted and maxed out on dose. Patient also was found to have elevated D- dimer, and given past history of pulmonary embolisms, Duplex b/l LE and CTA were ordered, which were negative. Because the CTA was a poor study, V/Q scan was ordered, which was: Assessment and Plan on Day of Discharge: Chest Pain r/o ACS - Troponin X 3, EKG X 3, ECHO ordered - Cardio consult: Dr. Fernandez Sinus Tachycardia, likely 2/2 Acute Hyperthyroidism - Endo consult: Dr. Garner - Propranolol ordered Acute Hyperthyroidism - Thyroglobulin AB, Thyroglobulin Panel, TSH, T3, T4, TSI ordered - Methimazole, Propranolol - Endo Consult: Dr. Garner Asymptomatic Anemia - H/H stable - Monitor for now Hypokalemia - Replenished, monitor K+ and Mg GI/DVT Prophylaxis - Protonix/SCD Discharge Exam - Head Exam Head Exam: ATRAUMATIC, NORMAL INSPECTION, NORMOCEPHALIC - Eye Exam Eye Exam: EOMI, PERRL Pupil Exam: NORMAL ACCOMODATION, PERRL Additional comments: Exophthalmos - Respiratory Exam Respiratory Exam: Clear to PA & Lateral, NORMAL BREATHING PATTERN, UNREMARKABLE - Cardiovascular Exam Cardiovascular Exam: Tachycardia, REGULAR RHYTHM, +S1, +S2. absent: JVD - GI/Abdominal Exam GI & Abdominal Exam: Normal Bowel Sounds - Neurological Exam Neurological exam: Alert, CN II-XII Intact, Normal Gait, Oriented x3, Reflexes Normal - Psychiatric Exam Psychiatric exam: Normal Affect, Normal Mood - Skin Skin Exam: Dry, Intact, Normal Color, Warm Discharge Plan - Discharge Medications Prescriptions: methIMAzole [Tapazole] 20 mg PO BID #60 tab Pantoprazole [Protonix EC Tab] 40 mg PO 0600 #30 ect Propranolol [Inderal] 20 mg PO BID #60 tab - Follow Up Plan Condition: GOOD Disposition: HOME/ ROUTINE Patient education suggested?: Yes Additional Instructions: MAY DISCHARGE HOME FOLLOW UP PMD AND ENDOCRINOLOGY WITHIN 1 WEEK DISCHARGE MEDS PER UPDATED AMBULATORY ORDERS AND NEW SCRIPTS PATIENT TO RELEASE ALL RECORDS FROM THIS HOSPITALIZATION TO PMD AND ENDOCRINOLOGY Referrals: PCP,NO [Primary Care Provider] -
--- NOTE | 2017-12-20 12:55 | NM ---
COMPARISON: December 19, 2017. Single-view chest TECHNIQUE: 40.7 mCi technetium 99-m DTPA aerosol. 4.4 mCI technetium 99-m MAA administered intravenously. FINDINGS: VENTILATION COMPONENT: Heterogeneous ventilation.Retention of radionuclide in the tracheobronchial tree and ingestion of radionuclide in the stomach, incidental findings PERFUSION COMPONENT: Heterogeneous distribution of radionuclide. No geographic, segmental, lobar abnormalities apparent on the present examination. IMPRESSION: Low probability ventilation perfusion scan for pulmonary embolism.
[2017-12-20 13:53] VITALS: BP 124/70; PULSE 92
--- NOTE | 2017-12-20 15:59 | PN ---
DATE: 12/20/2017 PULMONARY PROGRESS NOTE REFERRING PHYSICIAN: Yuri Ellison MD. SUBJECTIVE: She is sitting up in the bed, having dinner. Night was unremarkable. Short of breath is better. No chest pain. No nausea. No vomiting. No diarrhea. Does have leg swelling. PHYSICAL EXAMINATION: GENERAL: In no acute distress. VITAL SIGNS: Temperature is 98, heart rate is 84, respiratory rate is 18, blood pressure 137/79, pulse ox 97% on room air. HEENT: Moist mucous membrane. Crowded airway. NECK: Supple. No JVD. LUNGS: Have a fair airflow with rhonchi. HEART: S1 and S2. ABDOMEN: Soft and nontender. No organomegaly. EXTREMITIES: Does have trace edema. NEUROLOGIC: Awake and alert. Follows simple command. MEDICATIONS: She is on Inderal 10 mg three times a day, Protonix 40 mg daily, and Tapazole 20 mg twice a day. LABORATORY DATA: Shows hemoglobin 9.6, hematocrit 29.8, WBC 4.2, platelet count is 168. Sodium 141, potassium 4, chloride 107, bicarbonate 26, BUN 7, creatinine 0.3, magnesium 1.8. AST 46, ALT 42, alkaline phosphatase 164. C-reactive protein 8.9. T4 free is 6.83, TSH less than 0.02. IMPRESSION AND PLAN: Pulmonary hypertension, history of pulmonary embolism, hyperthyroidism, anemia, admitted with symptoms of shortness of breath and leg swelling. CT had been negative. V/Q scan pending. Pulmonary point of view, she is stable to be discharged. Need further workup as outpatient for pulmonary hypertension and may also need to treat, also need anemia workup to assure the stability of hemoglobin and hematocrit. Thank you and we will follow with you. Margarito Barboza MD
[2017-12-20 20:15] LABS: THYROGLOBULIN 78.5 ng/mL (2.8-40.9)
--- NOTE | 2017-12-20 22:02 | PN ---
DATE: SUBJECTIVE: The patient was seen earlier today while she was in the imaging. She denies any shortness of breath. She is still experiencing vague left upper pectoral pain that get into her left shoulder. The patient is experiencing palpitations at times, but denies any dizziness or syncope. She denies any shortness of breath at this time. PHYSICAL EXAMINATION: VITAL SIGNS: Blood pressure 124/70, heart rate 92, temperature 98.2, respirations 22. HEENT: Staring look as well as lid lag with exophthalmos. EXTREMITIES: Nonpitting edema, most likely myxedema. LABORATORY DATA: Today's hemoglobin and hematocrit 9.6 and 29.8, white count 12.2, and platelet count 168,000. SMA-7: Sodium 141, potassium 4, chloride 107, CO2 26, glucose 92, BUN 7, creatinine 0.3. Alkaline phosphatase is elevated at 146. Today's TSH level is less than 0.02. Ventilation/Perfusion scan is low probability for pulmonary embolism. ASSESSMENT: 1. Atypical chest pain, myocardial infarction is ruled out. 2. Thyrotoxicosis with diffuse goiter. 3. Mild pulmonary hypertension. 4. History of pulmonary embolism last year when she was admitted to [facility]. 5. Mild anemia. RECOMMENDATIONS: Continue current Inderal 10 mg three times a day and Tapazole 20 mg p.o. twice a day. The patient is awaiting endocrine evaluation to optimize the control of thyrotoxicosis. The echocardiographic study that was performed yesterday revealed normal left ventricular size, normal systolic as well as diastolic function, mild pulmonary hypertension and mild dilated left atrium. Lionel German MD
--- NOTE | 2017-12-20 22:32 | PN ---
DATE: ENDOCRINOLOGY FOLLOWUP NOTE LOCATION: In room 264. SUBJECTIVE: This is a 32-year-old female with overt thyrotoxicosis presenting here with precordial chest pain and palpitations with concomitant marked hyperthyroidism and is now being followed closely for metabolic management. LABORATORY DATA: Her repeat thyroid studies today showed a T4 of 24.9 with a free T4 of 6.83 and a TSH of less than 0.02. Her latest chemistry showed a BUN of 7, sodium 141, potassium 4.8, chloride 107, CO2 of 26, glucose 92 and creatinine 0.3. ASSESSMENT: This is a 32-year-old female with marked hyperthyroidism both historically, clinically and biochemically related to underlying Graves disease with a concomitant diffuse toxic goiter. No overt neck compressive or obstructive manifestations are noted at this time. PLAN OF MANAGEMENT: As discussed with the patient lengthily, we will continue the much higher dosing of her Tapazole given as 20 mg p.o. b.i.d. after meals as ordered. We will await the reports of the thyroid-stimulating immunoglobulin and the thyroid peroxidase antibody, which will confirm and/or indicate the presence of thyroid autoimmunity. We will obtain serial thyroid studies and titrate her dose regimen accordingly. She is to schedule for discharge today as noted. Her thyroid ultrasound reports were also discussed with the patient with a quite moderately enlarged thyroid lobe dimensions both right and left lobes, measuring over 6 cm, but no overt thyroid nodules noted otherwise. She will follow with her medical doctor for outpatient medical and thyroid management. Giovanna Garner MD
--- NOTE | 2017-12-21 11:02 | DS ---
LOCATION: The patient was seen in room 264, bed 1. HISTORY OF PRESENT ILLNESS: The patient was seen lying in the bed watching TV. The patient is comfortable. No adverse events documented by the nurses. Telemetry monitoring shows sinus rhythm. The patient is alert, awake, responsive, oriented x3. The patient does not offer any chest pain or shortness of breath at this time. The patient is comfortable, in no distress. Overnight nurses' notes were reviewed. The patient slept well. The patient had only one complaint of headache, for which Tylenol was given. The patient ambulated independently. PHYSICAL EXAMINATION: VITAL SIGNS: T-max afebrile, 98.2. Telemetry sinus rhythm, heart rate 84, blood pressure 137/79, respirations 18, O2 saturation 97%. HEENT: Head examination normocephalic, atraumatic. HEENT examination shows pinkish conjunctivae. Anicteric sclerae. No oropharyngeal lesion. No neck rigidity. CHEST: Examination symmetrical. LUNGS: Examination shows no rales, crackles or wheezing. CARDIOVASCULAR: S1, S2. Regular rhythm. Questionable soft systolic murmur, right second intercostal space, left second intercostal space, left sternal border. ABDOMEN: Soft. Positive bowel sounds. . No hepatosplenomegaly noted. No guarding or rigidity. No rebound tenderness. LUNGS: Shows no rales, crackles or wheezing. GENITALIA: Female. RECTAL: Examination deferred. EXTREMITIES: Shows no pitting edema, no calf numbness, no Homans' sign. MUSCULOSKELETAL: Shows a body mass index of 28.2. DIAGNOSTICS: 12/20, WBC 4.2, hemoglobin/hematocrit 9.6 and 29.8, platelets 168. Sodium 141, potassium 4, chloride 107, CO2 26, anion gap 12, BUN 7, creatinine 0.3, GFR greater than 60, glucose 92, calcium 10.1, magnesium 1.8, AST 46, alkaline phosphatase 164. AST is down to 46 from 51. LFTs are normal. C-reactive protein 8.9. Thyroxin still greater than 25. Cholesterol 145, triglycerides 46, LDL 81, HDL 41. Venous Doppler of the both lower extremities negative for DVT. Echo and EKG was reviewed. The patient was seen by Pulmonary and Endocrinology. Their recommendations were noted. IMPRESSION: 1. Chest pain with the shortness of breath (resolved, etiology undetermined). 2. Overt thyrotoxicosis with marked hyperthyroidism related to underlying Graves' disease. 3. History of hyperthyroidism. 4. History of hypertension. 5. Resting tachycardia, resolved. 6. Leukopenia. 7. Microcytic anemia. 8. Lymphocytosis. 9. Elevated erythrocyte sedimentation rate. 10. Elevated D-dimer of 381, etiology undetermined. 11. Hypomagnesemia. 12. Transaminitis, resolving. 13. Hyperthyroidism with elevated free and total thyroxine. 14. Elevated erythrocyte sedimentation rate of 36 and 42. 15. Proteinuria. 16. Microscopic hematuria. 17. Sinus tachycardia. 18. Bibasilar lingular atelectasis. 19. Cardiomegaly. 20. Heterogenous thyromegaly with hypervascular thyroid gland. 21. Left ventricular ejection fraction of 53%. 22. Pulmonary hypertension with right ventricular systolic pressure of 45 mmHg. 23. Mild tricuspid regurgitation. 24. Hypokalemia, hypomagnesemia. 25. Elevated C-reactive protein. PLAN: At this time, recommendation by Endocrinology and Pulmonary noted and reinforced to patient. The patient will be cleared for discharge after the V/Q scan is negative. The patient's discharge medications were reviewed with the Endocrinology and the patient's discharge medications will be Inderal 20 mg twice a day, Protonix 40 mg daily, Tapazole increased to 20 mg three times a day. The patient is to resume her Xanax 0.25 mg p.o. daily. The patient will start on Inderal 20 mg twice a day. The patient will start on Tapazole 20 mg twice a day. The patient will be discharged home after the V/Q scan is negative. The patient was advised to follow up with her own PMD and Endocrinology within one week. The patient was advised and explained the discharge medications on the new script. The patient was advised to release all records from this hospitalization to PMD and Endocrinology. The patient was extensively explained about the details of her medical conditions in layman's language. All questions concerned answered, all test results, diagnostic test results, recommendation by all physician explained to the patient at length and all questions concerned answered. Time spent in the entire discharge process more than 45 minutes. Dictated and electronically signed, not read. Yuri Scot, MD
== END 2017-12-20 15:48 | disposition home or self-care (01) | DRG 313 ==
LOC: ED 20:15 → ERH 12-19 01:55 → MERGE 12-19 01:55 → ERH 12-19 02:42 → 2RNO 12-19 05:51
PROVIDERS: ADMIT Internal Medicine; ATTEND Internal Medicine
DX: R07.2 Precordial pain (principal); E05.00 Thyrotoxicosis with diffuse goiter without thyrotoxic crisis or storm; J98.11 Atelectasis; E83.42 Hypomagnesemia; R00.0 Tachycardia, unspecified; E87.6 Hypokalemia; I27.21 Secondary pulmonary arterial hypertension; I10 Essential (primary) hypertension; I36.1 Nonrheumatic tricuspid (valve) insufficiency; D50.9 Iron deficiency anemia, unspecified; F41.9 Anxiety disorder, unspecified; R80.9 Proteinuria, unspecified; R79.1 Abnormal coagulation profile; Z86.711 Personal history of pulmonary embolism